=== PATIENT | male | born 1955 | race Caucasian/White ===

== ENCOUNTER → 2016-05-26 | Outpatient (CLI) | payer OTHER ==
[~2016-05-26] MED LIST: ASPIR 8181 MG PO; NORFLEX100 MG PO; VICODIN ES 7501 TAB PO
== END | disposition home or self-care (01) ==
LOC: CT 09:49
DX: K40.90 Unilateral inguinal hernia, without obstruction or gangrene, not specified as recurrent (principal); R93.429 Abnormal radiologic findings on diagnostic imaging of unspecified kidney; N28.89 Other specified disorders of kidney and ureter; K57.90 Diverticulosis of intestine, part unspecified, without perforation or abscess without bleeding

== ENCOUNTER → 2018-12-19 | Outpatient (CLI) | payer OTHER | END | disposition home or self-care (01) | LOC: US 07:26 | DX: Z13.6 Encounter for screening for cardiovascular disorders (principal); Z87.891 Personal history of nicotine dependence ==

== ENCOUNTER → 2020-03-31 | Outpatient (CLI) | payer OTHER | END | disposition home or self-care (01) | LOC: MRI 10:00 | PROVIDERS: ATTEND Nurse Practitioner Family | DX: S83.241A Other tear of medial meniscus, current injury, right knee, initial encounter (principal); X58.XXXA Exposure to other specified factors, initial encounter; Y93.89 Activity, other specified; Y92.89 Other specified places as the place of occurrence of the external cause; Y99.8 Other external cause status ==

== ENCOUNTER 2023-08-11 09:21 | Emergency (ER) | payer MEDICARE, BC ==
[~2023-08-11] VITALS: Ht 180.3 cm; Wt 77.1 kg
[2023-08-11] MEDS ORDERED: K2 PLUS D3 TAB1 EACH PO (09:38)
[2023-08-11] MEDS ORDERED: GALZIN25 MG PO (09:38)
[2023-08-11] MEDS ORDERED: VITAMIN C500 M4 PO (09:39)
[2023-08-11] MEDS ORDERED: MAGNESIUM250 M1 PO (09:39)
[2023-08-11] MEDS ORDERED: predniSONE 20 MG TAB PO ONE (09:45)
[2023-08-11] MEDS ORDERED: TRIAMCINOLONE430 GM TD (09:48)
[2023-08-11] MEDS ORDERED: PREDNISONE20 M1 PO (09:48)
== END 2023-08-11 09:52 | disposition home or self-care (01) ==
LOC: ED 09:21
DX: L25.9 Unspecified contact dermatitis, unspecified cause (principal); Z88.1 Allergy status to other antibiotic agents; Z79.899 Other long term (current) drug therapy; Z98.890 Other specified postprocedural states